=== PATIENT | female | born 2000 | race Two or more races ===

== ENCOUNTER 2024-07-23 14:17 | Emergency (ER) | payer SELFPAY ==
[2024-07-23 14:18] VITALS: BMI 23.1
[2024-07-23 14:32] VITALS: BP 122/75; PULSE 105; RESP 16; TEMP 36.8; O2SAT 98
--- NOTE | 2024-07-23 14:49 | EDNOTE_ITS ---
ED Female Urogenital RME/HPI General Chief complaint: Urogenital-Female Stated complaint: R/O STD: Bleeding, vaginal pain Time Seen by Provider: 07/23/24 14:26 Arrival date/time: 07/23/24 14:17 23-year-old female reports with complaints of vaginal irritation pain irregular bleeding and discharge. Patient states that she recently found that her boyfriend has been having sex with prostitutes she is concerned for possible STI infection. She denies any vaginal lesions fever chills nausea or vomiting dysuria urinary urgency or frequency. Limitations: no limitations Related Data Previous Rx's ?Medication ?Instructions ?Recorded diphenhydramine HCl 12.5 mg/5 mL 2 tsp PO Q4-6HRPRN ## 1 03/27/12 oral liquid (Children's Benadryl Allergy) prednisone 20 mg tablet 60 mg (3 x 20 mg) PO QAM 10/31 angioedema #12 tabs cyclobenzaprine 5 mg tablet 5 mg PO TID PRN muscle spa sm #20 11/22/22 tabs naproxen 500 mg tablet 500 mg PO BID PRN pain #30 t abs 11/22/22 diphenhydramine HCl 25 mg capsule 25 mg PO Q8H PRN all ergic symptoms 06/27/23 (Benadryl) #30 caps hydrocortisone 0.5 % topical cream 1 applic topical BI D PRN itching 06/27/23 #28.4 grams doxycycline hyclate 100 mg tablet 100 mg PO BID 14 day s #28 tabs 07/23/24 metronidazole 500 mg tablet 500 mg PO BID 14 days #28 tabs 07/23/24 Allergies Allergy/AdvReac Type Severity Reaction Status Date / Time shellfish derived Allergy Mild Rash Verified 05/20/17 23:48 Past Medical History Social History SMOKING STATUS: Never smoker ED Exam General Limitations: Present no limitations General appearance: Present alert and in no apparent distress Abdominal Exam Abdominal exam: Present soft and normal bowel sounds External exam: Present normal external exam Speculum exam: Present vaginal bleeding Bimanual exam: Present cervical motion tenderness Back Exam Back exam: Present normal inspection and full ROM Neurological Exam Neurological exam: Present alert, oriented X3 and CN II-XII intact Psychiatric Psychiatric exam: Present normal affect and normal mood Skin Skin exam: Present warm, dry, intact and normal color Course Quality Measures none Orders Category Date Time Status Bacterial Vaginal Panel Stat Lab 07/23/24 15:15 Received Chlamydia/GC/TV - PCR Stat Lab 07/23/24 15:15 Received HCG Qualitative,Urine Stat Lab 07/23/24 15:24 Results HIV-1/2 Ag & Ab,4th Gen* Stat Lab 07/23/24 15:15 Received Hepatitis C Antibody Stat Lab 07/23/24 15:15 Received Herpes Simplex 1 and 2 IgG Ab* Stat Lab 07/23/24 15:15 Received Syphilis Stat Lab 07/23/24 15:15 Received UA, C/S IF [Urinalysis, C/S if Indicated] Stat Lab 07/23/24 15:24 Results Doxycycline [Vibramycin] Med 07/23/24 16:00 Discontinued 100 mg PO X1 ONE cefTRIAXone [Rocephin] 1,000 mg Med 07/23/24 15:15 Discontinued Lidocaine 1% 20 ml [Xylocaine 1% 20 ML] 2.1 ml IM X1 metroNIDAZOLE [Flagyl] Med 07/23/24 16:00 Discontinued 500 mg PO X1 ONE Vital Signs Vital signs: Vital Signs Temperature 98.3 F 07/23/24 14:32 Pulse Rate 105 H 07/23/24 14:32 Respiratory Rate 16 07/23/24 14:32 Blood Pressure 122/75 07/23/24 14:32 Pulse Oximetry (%) 98 07/23/24 14:32 Oxygen Delivery Method Room Air 07/23/24 14:32 Urogenital - Female Patient data External records reviewed:: None Clinical information provided by:: patient Social determinants that could affect healthcare access:: none Patient has the following chronic illnesses:: none How is presenting disease/condition affected by chronic disease/condition?: no chronic disease Evaluation data The following diagnostics were reviewed and interpreted by me:: lab results Lab and/or radiology exams considered but not ordered:: none Interpretation Summary: Labs are still pending Medications / Prescriptions Medications or Prescriptions considered but not ordered:: None Medication administrations:: Medication Administration History Discontinued Medications Ceftriaxone Sodium 1,000 mg/ (Lidocaine HCl 2.1 ml) 0 mg IM X1 ONE Stop: 07/23/24 15:16 Last Admin: 07/23/24 15:44 Dose: 1,000 mg Documented By: KF Comments: 2.1 ml lidocaine Doxycycline Hyclate (Doxycycline 100 Mg Tablet) 100 mg PO X1 ONE Stop: 07/23/24 16:01 Metronidazole (Metronidazole 250 Mg Tablet) 500 mg PO X1 ONE Stop: 07/23/24 16:01 As above Consultations Consultation(s) initiated? (list below): No Diagnosis Urogenital Female Differential Diagnosis: urinary tract infection, bacterial vaginosis, trichomoniasis and other (Gonorrhea, chlamydia) Most likely diagnosis given after review of the tests above:: Pelvic inflammatory disease Admission Indicated Admission indicated?: not indicated Admission Request Was there a request for admission?: No Disposition Plan Disposition Plan: Discharge Discharge Attestation Discharge Attestation: The patient and all family members were given an opportunity to ask questions and understood the discharge instructions. Discharge instructions specifically effects, indications for sooner follow up or return to the emergency department, and the expected course of current diagnosis. Patient condition: Stable Discharge Plan Plan Patient Disposition: HOME (Self Care) Prescriptions/Referrals Prescriptions/Med Rec: New metronidazole 500 mg tablet 500 mg PO BID 14 Days Qty: 28 0RF doxycycline hyclate 100 mg tablet 100 mg PO BID 14 Days Qty: 28 0RF No Action diphenhydramine HCl [Children's Benadryl Allergy] 12.5 MG/5 ML liquid 2 tsp PO Q4-6HRPRN Qty: 1 0RF prednisone 20 MG tablet 60 mg PO QAM Qty: 12 0RF Rx Instructions: use for 4 days cyclobenzaprine 5 mg tablet 5 mg PO TID PRN (Reason: muscle spasm) Qty: 20 0RF naproxen 500 mg tablet 500 mg PO BID PRN (Reason: pain) Qty: 30 0RF diphenhydramine HCl [Benadryl] 25 mg capsule 25 mg PO Q8H PRN (Reason: allergic symptoms) Qty: 30 0RF hydrocortisone 0.5 % cream 1 applic topical BID PRN (Reason: itching) Qty: 28.4 0RF Problem List Clinical Impression: Acute pelvic inflammatory disease (PID) Patient/Caregiver Discharge Instructions Education Materials: ED Pelvic Inflammatory Disease Additional Instructions: Avoid sexual contact for the next 14 days, notify any and all partners that they should be tested and treated as needed, take antibiotics as directed drink lots of water and follow-up with your primary care provider as needed. You should check the patient portal or call medical records in the next 5 days for your result Print Language: Wolof Stand Alone Forms: [employer] Patient Portal Info Letter
[2024-07-23 15:34] LABS: Collection Type, Urine Clean Catch
[2024-07-23] MEDS: cefTRIAXone 1,000 MG, LIDOCAINE 1% 20 ML 2.1 ML IM (15:44)
[2024-07-23 15:51] LABS: HCG Qualitative,Urine Negative
[2024-07-23 16:18] LABS: Syphilis Nonreactive (Nonreactive)
[2024-07-23 16:20] LABS: Bilirubin,Urine Negative (Negative); Blood,Urine 3+ (Negative); Clarity,Urine Turbid (Clear/Hazy); Color,Urine Yellow (Lt Yel-Yel); Glucose, Urine Trace (Negative); Ketones,Urine Trace (Negative); Leukocyte Esterase,Urine Positive (Negative); Nitrite,Urine Negative (Negative); PH,Urine 5.5 (5.0-7.0); Protein,Urine Trace (Neg - Trace); RBC,Urine 174 /hpf (0-3); Specific Gravity,Urine 1.035 (1.001-1.035); Squamous Epithelial Cell,Urine 2 /hpf (0-5); Urobilinogen,Urine Negative mg/dL (0.0-1.0); WBC,Urine 86 /hpf (0-5)
[2024-07-23 16:21] LABS: Culture Indicated,Urine Yes
[2024-07-23] MEDS: DOXYCYCLINE 100 MG TABLET PO (16:21)
[2024-07-23] MEDS: metroNIDAZOLE 250 MG TABLET 500 MG PO (16:21)
[2024-07-23 16:48] LABS: Hepatitis C Antibody Non Reactive (Non React)
[2024-07-25 10:11] LABS: BVAG Candida Negative (Negative); Bacterial Vaginosis Markers Positive (Negative); Candida glabrata Negative (Negative); Candida krusei PCR Negative (Negative); Trichomonas Negative (Negative)
[2024-07-27 22:03] LABS: HSV1 IgG Type Specific Ab >58.00 INDEX
[2024-07-30 07:07] LABS: HIV Ag/Ab, 4th Gen NON-REACTIVE; HSV2 IgG Type Specific Ab 3.01 INDEX
== END 2024-07-23 16:31 | disposition home or self-care (01) ==
LOC: SERX 16:56
PROVIDERS: Physician Assistant; Emergency Provider Emergency Medicine; PCP Nurse Practitioner Primary Care
DX: N73.0 Acute parametritis and pelvic cellulitis (principal)
CPT/HCPCS: 36415; 81001; 81025; 81514; 86695; 86696; 86780; 86803; 87077; 87086; 87186; 87389; 87491; 87591; 87661; 96372; 99283; J0696; J3490; A9270

== ENCOUNTER 2024-12-02 02:05 | Emergency (ER) | payer MEDICAID, SELFPAY ==
[2024-12-02 02:06] VITALS: BP 113/75; PULSE 96; RESP 20; TEMP 36.9; O2SAT 98; BMI 21.6
--- NOTE | 2024-12-02 03:55 | EDNOTE_ITS ---
ED Animal Bite RME/HPI General Chief Complaint: Animal Bite Stated Complaint: DOG BITE TO LEFT EYEBROW Time Seen by Provider: 12/02/24 03:41 Arrival date/time: 12/02/24 02:05 RME / HPI RME / HPI narrative: 24-year-old female presents to the ED with a complaint of a dog bite/laceration to her left eyebrow area secondary to a dog bite that occurred Tuesday night/early Tuesday morning. She states she was over at her friend's house where they were all watching TV, the dog was asleep and the patient got up from the couch quickly which spooked the dog, causing it to lunch and bite her on the left eyebrow. Her friend states they just obtained the dog and he received all of his immunizations. The patient's last tetanus is unknown. She denies any visual changes. Related Data Previous Rx's ?Medication ?Instructions ?Recorded diphenhydramine HCl 12.5 mg/5 mL 2 tsp PO Q4-6HRPRN ## 1 03/27/12 oral liquid (Children's Benadryl Allergy) prednisone 20 mg tablet 60 mg (3 x 20 mg) PO QAM 10/31 angioedema #12 tabs cyclobenzaprine 5 mg tablet 5 mg PO TID PRN muscle spa sm #20 11/22/22 tabs naproxen 500 mg tablet 500 mg PO BID PRN pain #30 t abs 11/22/22 diphenhydramine HCl 25 mg capsule 25 mg PO Q8H PRN all ergic symptoms 06/27/23 (Benadryl) #30 caps hydrocortisone 0.5 % topical cream 1 applic topical BI D PRN itching 06/27/23 #28.4 grams amoxicillin 875 mg-potassium 1 tab PO BID #14 tabs clavulanate 125 mg tablet ibuprofen 600 mg tablet 600 mg PO Q8H PRN pain #15 t abs 12/02/24 Allergies Allergy/AdvReac Type Severity Reaction Status Date / Time shellfish derived Allergy Mild Rash Verified 05/20/17 23:48 Review of Systems Review of Systems Systems Reviewed: All systems reviewed, normal except as documented Past Medical History Social History SMOKING STATUS: Never smoker ED Exam Narrative Physical exam: A&O, afebrile and non-toxic appearing 24-year-old female, no acute distress. Pupils are PERRL, EOMs intact. No left eyelid edema, erythema or ecchymosis noted. Left eyebrow with linear laceration, approximately 2.5 cm in length. No signs of infection present at this time. Mild tenderness noted. Superficial abrasion noted to the left medial forehead area. No puncture wound noted. Lung are clear, RRR, Abdomen is non-distended. Moves all extremities well. Course Course Course Narrative: Patient's wound was cleansed, antibiotic ointment applied and a Band-Aid. Patient's tetanus was updated. She was given her first dose of Augmentin here in the ED. Discussed case with Dr. Morin who agrees that she is out of the window for wound repair due to the dog bite/wound being open for greater than 24 hours. Quality Measures none Orders Category Date Time Status Cleanse Wound NEEDED Care 12/02/24 04:00 Active TDap [Obtain Tdap Consent] X1 Care 12/02/24 04:00 Active Amoxicillin/Pot Clav 875 [Augmentin 875] Med 12/02/24 04:00 Discontinued 1 tab PO X1 ONE Bacitracin Oint pkt Med 12/02/24 04:01 Discontinued 1 gm TOP X1 ONE TET,DIP/PERT AC (Adult)-Tdap [Boostrix Adult (Tdap) Med 12/02/24 04:00 Discontinued Vacc] 0.5 ml IMI .ONCE ONE Vital Signs Vital signs: Vital Signs Temperature 98.4 F 12/02/24 02:06 Pulse Rate 96 12/02/24 02:06 Respiratory Rate 20 12/02/24 02:06 Blood Pressure 113/75 12/02/24 02:06 Pulse Oximetry (%) 98 12/02/24 02:06 Oxygen Delivery Method Room Air 12/02/24 02:06 Animal Bite Medications / Prescriptions Medication administrations:: Medication Administration History Discontinued Medications Amoxicillin/Clavulanate Potassium (Amoxicillin/Pot Clav 875 Tablet) 1 tab PO X1 ONE Stop: 12/02/24 04:01 Bacitracin (Bacitracin Oint 1 Gm Packet) 1 gm TOP X1 ONE Stop: 12/02/24 04:02 Diphtheria/Tetanus/Acell Pertussis (Diphth,Pertuss(Acell),Tet Vac 0.5 Ml Syr- Adult) 0.5 ml IMi .ONCE ONE Stop: 12/02/24 04:01 Discharge Plan Plan Patient Disposition: HOME (Self Care) Discharge Disposition comment: Stable Prescriptions/Referrals Prescriptions/Med Rec: New amoxicillin-pot clavulanate 875-125 mg tablet 1 tab PO BID Qty: 14 0RF Rx Instructions: Dog bite to face ibuprofen 600 mg tablet 600 mg PO Q8H PRN (Reason: pain) Qty: 15 0RF No Action diphenhydramine HCl [Children's Benadryl Allergy] 12.5 MG/5 ML liquid 2 tsp PO Q4-6HRPRN Qty: 1 0RF prednisone 20 MG tablet 60 mg PO QAM Qty: 12 0RF Rx Instructions: use for 4 days cyclobenzaprine 5 mg tablet 5 mg PO TID PRN (Reason: muscle spasm) Qty: 20 0RF naproxen 500 mg tablet 500 mg PO BID PRN (Reason: pain) Qty: 30 0RF diphenhydramine HCl [Benadryl] 25 mg capsule 25 mg PO Q8H PRN (Reason: allergic symptoms) Qty: 30 0RF hydrocortisone 0.5 % cream 1 applic topical BID PRN (Reason: itching) Qty: 28.4 0RF Referrals: No Primary/Family,Physician [Primary Care Provider] - In 1 week Problem List Clinical Impression: Dog bite, Laceration of face with delay in treatment Patient/Caregiver Discharge Instructions Education Materials: ED Dog Bite, ED Laceration, Old: Not Sutured Additional Instructions: Take the antibiotics as prescribed and complete the course even though you may be feeling better. Follow-up with your primary care physician in 24 to 48 hours for a wound check. Return to the ED for any new or worsening symptoms including increased pain, redness, swelling or pus drainage. Print Language: Eritrean Stand Alone Forms: [employer] Patient Portal Info Letter PA/[employer] SUPERVISOR Supervising Physician PA/[employer]IRS[employer] F[employer]RICATION SUPERVISOR Supervising Physician: Dr. Morin
[2024-12-02] MEDS: BACITRACIN OINT 1 GM PACKET TOP (04:39)
[2024-12-02] MEDS: AMOXICILLIN/POT CLAV 875 TABLET 1 TAB PO (04:39)
[2024-12-02] MEDS: DIPHTH,PERTUSS(ACELL),TET VAC 0.5 ML SYR- ADULT IMi (04:39)
== END 2024-12-02 04:44 | disposition home or self-care (01) ==
PROVIDERS: Emergency Provider Emergency Medicine
DX: S01.152A Open bite of left eyelid and periocular area, initial encounter (principal); W54.0XXA Bitten by dog, initial encounter; Z23 Encounter for immunization
CPT/HCPCS: 90715; 99283; A9270